=== PATIENT | female | born 1945 | race Two or more races ===

== ENCOUNTER 2019-07-10 10:40 | Outpatient (CLI) | payer OTHER ==
[~2019-07-10 10:40] MED LIST: [UNRECOGNIZED DRUG - REMARK]
== END 2019-07-10 10:46 | disposition home or self-care (01) ==
LOC: SONOGRAMA 10:40
DX: N60.11 Diffuse cystic mastopathy of right breast (principal); N60.12 Diffuse cystic mastopathy of left breast

== ENCOUNTER → 2019-07-26 | Outpatient (CLI) | payer OTHER | END | disposition home or self-care (01) | LOC: SONOGRAMA 07:48 | DX: N60.11 Diffuse cystic mastopathy of right breast (principal) ==

== ENCOUNTER 2019-11-15 10:24 | Emergency (ER) | payer OTHER ==
[~2019-11-15] VITALS: Ht 152.4 cm; Wt 59.9 kg
[2019-11-15] MEDS ORDERED: METFORMIN HCL500 M3 (10:41)
[2019-11-15] MEDS ORDERED: LANTUS SOL100 UNIT/1 SQ (10:42)
[2019-11-15] MEDS ORDERED: SIMVASTATIN20 MG PO (10:42)
[2019-11-15] MEDS ORDERED: COZAAR50 MG PO (10:42)
== END 2019-11-15 15:30 | disposition home or self-care (01) ==
LOC: ER 10:24
DX: K57.32 Diverticulitis of large intestine without perforation or abscess without bleeding (principal); R10.32 Left lower quadrant pain